=== PATIENT | male | born 1995 | race Caucasian/White ===

== ENCOUNTER 2016-12-13 23:26 | Emergency (ER) | payer BC, OTHER ==
[~2016-12-13] VITALS: Ht 185.4 cm; Wt 124.2 kg
[2016-12-13 23:45] VITALS: TEMP 36.6; Ht 185.4 cm; Wt 124.2 kg
[2016-12-13] MEDS ORDERED: PROPARACAINE HCL 0.5% OP SOLN 15 ML BTL OP STA (23:55)
[2016-12-14] MEDS ORDERED: CIPROFLOXACIN HCL 0.3% OP SOLN 2.5 ML BTL OP STA (00:36)
[2016-12-14] MEDS ORDERED: NORCO 5/325MG HOME PACK PO STA (00:36)
[2016-12-14] MEDS ORDERED: HYDR-5688 PO (00:37)
--- NOTE | 2016-12-14 00:38 | EMERGENCY ROOM VISIT NOTE ---
History First contact with patient: 23:51 Chief Complaint: EYE ASSESSMENT Stated Complaint: RT EYE SCRATCHED History of Present Illness The patient is a 21 year old male who presents to the Emergency Room via private vehicle with complaints of "right eye scratched". The patient states that he wears contact lenses, and placed his contact lenses in as he usually does around 10 AM, at which point he noted irritation in the right eye. He removed the contact cleansed it and then put it back in his eye. He continued throughout his stay, until 4 PM when he removed the contact secondary to continued irritation and found that it was ripped in the center. He then removed the contact and was trying to sleep tonight and had difficulty sleeping secondary to right eye irritation. He rates the pain as a 6-7/10. The pain comes in waves. Photophobia is noted. He denies any change in vision. His tetanus is up-to-date. Review of Systems A complete 6-point Review of Systems was discussed with the patient, with pertinent positives and negatives listed in the History of Present Illness. All remaining Review of Systems questions can be considered negative unless otherwise specified. Past Medical/Surgical History No pertinent past medical history. Family History No pertinent family history. Social History Smoking Status: Never Smoker Social History: Patient is currently employed locally. Current/Historical Medications Scheduled PRN Hydrocodone/Acetaminophen 5MG/325MG ([place] 5MG/325MG), 1-2 TABLET PO Q6 PRN for Pain Allergies Coded Allergies: No Known Allergies (Unverified , 12/14/16) Physical Exam Vital Signs Date Time Temp Pulse Resp B/P (MAP) Pulse Ox O2 Delivery O2 Flow Rate FiO2 12/14/16 00:57 85 18 132/69 98 Room Air 12/13/16 23:45 36.6 86 18 144/88 98 Room Air Right Eye Acuity: Pt unable to complete Left Eye Acuity: No glasses or contacts with him Physical Exam VITAL SIGNS - Vital signs and nursing notes were reviewed. Patient is afebrile , hypertensive at 144/88, non-tachycardic and saturating well on room air 98%. GENERAL -21-year-old male appearing his stated age. Communicates well with provider and answers questions appropriately. HEAD - Normocephalic, Atraumatic. No Lugo's Sign or Raccoon's Eyes. No depressed skull fractures palpable. EYES - PERRL with EOMI bilaterally. Sclera of the right eye without noticeable foreign body or excoriations. Right conjunctival injection noted in the right eye. Without subconjunctival hemorrhage. Palpebral conjunctiva pink and moist with no injection or discharge noted. Brief fundoscopic exam demonstrates no AV- nicking, cotton wool spots, or flame hemorrhages. Slit lamp examination performed as further described. Slit Lamp Examination was performed of the right eye(s). Alcaine drops were applied to the affected eye(s) for proper anesthetization. The affected eye(s) were stained with Fluorescein stain to precipitate adequate visualization of any conjunctival/scleral excoriations or ulcers. The patient's face was comfortably rested on the chin guard of the slit lamp apparatus. The lights were dimmed and the affected eye(s) were thoroughly examined under microscopy using the blue light. No uptake was present within the right eye. Additionally , the eye(s) were examined under microscopy using the regular light. Close examination revealed no abnormalities. Patient tolerated the procedure well and no complications were met. An Automated Tonometer was utilized to obtain bilateral orbital pressures. The pressures in the LEFT eye were found to be 14. The pressures in the RIGHT eye were found to be 12. Patient tolerated the procedure well and no complications were met. Medical Decision & Procedures Medications Administered Medications (Trade) Dose Ordered Sig/Arias Route Start Time Stop Time Status Last Admin Dose Admin Proparacaine HCl (Alcaine 0.5% Oph Soln) 2 drops NOW STAT OP 12/13/16 23:55 12/13/16 23:57 DC 12/14/16 00:02 2 DROPS Ciprofloxacin HCl (Ciprofloxacin 0.3% Op Soln) 2 drops NOW STAT OP 12/14/16 00:36 12/14/16 00:37 DC 12/14/16 00:55 2 DROPS Acetaminophen/ Hydrocodone Bitart ([place] 5/325mg Home Pack) 1 homepack UD STAT PO 12/14/16 00:36 12/14/16 00:37 DC 12/14/16 00:55 1 HOMEPACK Medical Decision Patient was seen and evaluated as above. After obtaining a thorough history and physical examination the decision was made to anesthetize the eye with Alcaine drops, and prepare eye stain. Consent was obtained, no uptake was seen on the slit lamp. Pressures are unremarkable. I suspect is likely experiencing conjunctival and corneal irritation secondary to the small tear in his contact lens. I do not suspect any underlying emergent etiology. He'll be placed upon Ciloxan eyedrops and managed his pain with [place] of the next few days. He is to follow-up with ophthalmology regarding today's visit. He is to return with worsening. He was educated on worrisome symptoms which to return, had questions prior to discharge, and was discharged home in good condition. In the evaluation and treatment of this patient, the following differential diagnoses were considered: Corneal Abrasion, Conjunctivitis, Eye Contusion, Globe Injury, Orbital Floor Injury (Blowout Fracture), Corneal Ulcer, Keratitis , Herpes Zoster Opthalmic, Blepharitis, Orbital Cellulitis, Iritis, Scleritis/ Episcleritis, Uveitis, Temporal Arteritis, Subconjunctival Hemorrhage. [facility] Drug Monitoring Program Search Results: patient reviewed within database, no issues identified Impression Primary Impression: Corneal irritation of right eye Departure Information Dispostion Home / Self-Care Condition GOOD Prescriptions Hydrocodone/Acetaminophen 5MG/325MG ([place] 5MG/325MG) Tab 1-2 TABLET PO Q6 Y for Pain, #15 TAB For Initial Treatment Prov: Konrad Hanna PA-C 12/14/16 Referrals No Doctor, Assigned (PCP) Wilner Singh D.O. Patient Instructions My [facility] Additional Instructions You have been treated in the Emergency Department today for your Corneal irritation. You have been prescribed NORCO to be used for pain control. This is a narcotic medication. You cannot drive or consume alcohol while on this medicine. This medicine should only be used for pain that cannot be controlled with over-the- counter pain medicines. Please do not take with TYLENOL! You have been prescribed Ciloxan eye drops. 1 to 2 drops into the conjunctival sac every 2 hours while awake for 2 days and 1 to 2 drops every 4 hours while awake for the next 5 days For pain control, you can use the following [id number] medicines (if >12 yo): - Regular strength (200 mg/tab) Advil (ibuprofen) 1-2 tabs every 4-6 hours as needed. Do not exceed a dose of 3200 mg per day. You should relax in a quiet, dark place for the rest of the day. You should wear sunglasses while outside for the next few days until your eyes are not as sensitive to the light. You should schedule a follow-up appointment in 2-3 days with your Primary Care Provider or Eye Doctor ([employer]) for further evaluation and treatment of your Corneal Abrasion. (Dr. Singh) Please call tomorrow. Your blood pressure was found to be slightly elevated today at 144/88. Please follow-up with your family doctor regarding this. Return to the Emergency Department if your current symptoms worsen despite treatment course outlined above, or if you develop any of the following symptoms : intractable pain, visual disturbances, loss of vision, increased redness, swelling, drainage, or if you develop a fever. Please return to the emergency department with any new/concerning symptoms.
[2016-12-14 00:57] VITALS: BP 132/69; PULSE 85; O2SAT 98
== END 2016-12-14 00:57 | disposition home or self-care (01) ==
LOC: C.EDB 23:28 → C.EDC 12-14 00:57
DX: H18.891 Other specified disorders of cornea, right eye (principal)